=== PATIENT | female | born 1985 | race Caucasian/White ===

== ENCOUNTER 2017-08-28 03:51 | Emergency (ER) | payer OTHER ==
[~2017-08-28 03:51] MED LIST: KETO10 PO
[2017-08-28 03:54] VITALS: BP 128/76; PULSE 75; RESP 16; TEMP 97.7; O2SAT 100
[2017-08-28] MEDS ORDERED: ACETAMINOPHEN 325 MG TAB PO ONE (04:45)
[2017-08-28] MEDS ORDERED: SODIUM CHLOR 0.9% 1000 ML INJ 1,000 ML IV ONE (04:45)
[2017-08-28] MEDS ORDERED: FAMOTIDINE 20 MG TAB PO ONE (04:45)
[2017-08-28 04:56] LABS: AUTOMATED NEUTROPHIL # 4.4 TH/MM3 (1.8-7.7); BASOPHIL % 0.6 % (0.0-2.0); EOSINOPHIL # 0.2 TH/MM3 (0-0.4); EOSINOPHIL % 2.5 % (0.0-4.0); HEMATOCRIT 33.3 % (35.0-46.0); HEMOGLOBIN 11.4 GM/DL (11.6-15.3); LYMPH % 35.4 % (9.0-44.0); LYMPHOCYTE # 2.9 TH/MM3 (1.0-4.8); MEAN CELL VOLUME 87.3 FL (80.0-100.0); MEAN CORPUSCULAR HEMOGLOBIN 29.8 PG (27.0-34.0); MEAN CORPUSCULAR HGB CONC 34.1 % (32.0-36.0); MEAN PLATELET VOLUME 9.2 FL (7.0-11.0); MONOCYTE # 0.7 TH/MM3 (0-0.9); NEUT % 53.5 % (16.0-70.0); PLATELET COUNT 218 TH/MM3 (150-450); RED BLOOD COUNT 3.81 MIL/MM3 (4.00-5.30); RED CELL DISTRIBUTION WIDTH 14.8 % (11.6-17.2); WHITE BLOOD COUNT 8.3 TH/MM3 (4.0-11.0)
[2017-08-28 05:10] LABS: ALBUMIN 3.1 GM/DL (3.4-5.0); BICARBONATE 25.7 MEQ/L (21.0-32.0); CALCIUM 8.7 MG/DL (8.5-10.1); CREATININE 0.57 MG/DL (0.50-1.00); DIRECT BILIRUBIN ADULT 0.1 MG/DL (0.0-0.2)
[2017-08-28 05:27] LABS: INDIRECT BILIRUBIN 0.1 MG/DL (0.0-0.8); TOTAL BILIRUBIN ADULT 0.2 MG/DL (0.2-1.0); TOTAL PROTEIN 6.6 GM/DL (6.4-8.2)
[2017-08-28 05:48] LABS: AMORPHOUS SEDIMENT, URINE RARE; BILIRUBIN, URINE NEG (NEG); BLOOD, URINE NEG (NEG); GLUCOSE,URINE NEG (NEG); KETONE, URINE NEG (NEG); MUCUS URINE FEW /lpf (OCC); NITRITE,URINE NEG (NEG); SQUAMOUS EPITHELIAL CELL URINE 1 /hpf (0-5); URINE COLOR LIGHT-YELLOW (YELLW/STRAW); URINE LEUKOCYTE ESTERASE NEG (NEG)
[2017-08-28] MEDS ORDERED: ZANT150T2 PO (06:14)
--- NOTE | 2017-08-28 06:15 | PD ---
HPI Chief Complaint: Related Problem Time Seen by Provider: 04:19 Travel History International Travel<30 days: No Contact w/Intl Traveler<30days: No Traveled to known affect area: No History of Present Illness HPI Patient is a 32 year old female, 13 weeks , , who comes in complaining of abdominal pain with vaginal spotting that started this afternoon. She says it got so bad she felt like she was going to pass out. She denies fever or chills. She denies dysuria. She has seen an OB and everything has been developing normally. She denies nausea or vomiting. She denies any flank pain. Severity is mild to moderate. PFSH Past Medical History Diminished Hearing: No Reproductive: Yes (POLUCYSTIC OVARIAN SYNDROME ) ?: LMP: 05/26/17 : 0 Past Surgical History Surgical History: No Previous Surgery Social History Alcohol Use: No Tobacco Use: No Substance Use: No Allergies-Medications (Allergen,Severity, Reaction): Coded Allergies: No Known Allergies (Unverified , 08/01/15) Reported Meds & Prescriptions Reported Meds & Active Scripts Active Toradol (Ketorolac Tromethamine) 10 Mg Tab 10 Mg PO Q8 *DO NOT EXCEED 40 MG/DAY* *DURATION IS NOT TO EXCEED 5 DAYS* Review of Systems Except as stated in HPI: all other systems reviewed are Neg General / Constitutional: No: Fever, Chills HENT: No: Headaches, Lightheadedness Cardiovascular: No: Chest Pain or Discomfort Respiratory: No: Shortness of Breath Gastrointestinal: Positive: Abdominal Pain Genitourinary: Positive: Vaginal Bleeding, No: Dysuria Skin: No Rash, No Change in Pigmentation Neurologic: No: Weakness Physical Exam Narrative GENERAL: Awake and alert, in no acute distress. SKIN: Focused skin assessment warm/dry. HEAD: Atraumatic. Normocephalic. EYES: Pupils equal and round. No scleral icterus. ENT: Mucous membranes pink and moist. NECK: Trachea midline. No JVD. CARDIOVASCULAR: Regular rate and rhythm. No murmur appreciated. RESPIRATORY: No accessory muscle use. Clear to auscultation. Breath sounds equal bilaterally. GASTROINTESTINAL: Abdomen soft, nondistended. Tender to palpation of the epigastric area. No rebound or guarding. : Exam performed in the presence of a nurse. No vaginal bleeding, os is closed. MUSCULOSKELETAL: No obvious deformities. No clubbing. No cyanosis. No edema. NEUROLOGICAL: Awake and alert. No obvious cranial nerve deficits. Motor grossly within normal limits. Normal speech. PSYCHIATRIC: Appropriate mood and affect; insight and judgment normal. Data Data Last Documented VS Vital Signs Date Time Temp Pulse Resp B/P (MAP) Pulse Ox O2 Delivery O2 Flow Rate FiO2 08/28/17 03:54 97.7 75 16 128/76 (93) 100 Orders Orders Ed Poc Ultrasound (08/28/17 ) Iv Access Insert/Monitor (08/28/17 04:33) Complete Blood Count With Diff (08/28/17 04:33) Basic Metabolic Panel (Bmp) (08/28/17 04:33) Hepatic Functional Panel (08/28/17 04:33) Lipase (08/28/17 04:33) Type And Screen (08/28/17 04:33) Beta Hcg (Quant/Titer) (08/28/17 04:33) Urinalysis - C+S If Indicated (08/28/17 04:33) Sodium Chlor 0.9% 1000 Ml Inj (Ns 1000 M (08/28/17 04:45) Acetaminophen (Tylenol) (08/28/17 04:45) Famotidine (Pepcid) (08/28/17 04:45) Labs Laboratory Tests Test 08/28/17 04:40 08/28/17 05:20 White Blood Count 8.3 TH/MM3 Red Blood Count 3.81 MIL/MM3 Hemoglobin 11.4 GM/DL Hematocrit 33.3 % Mean Corpuscular Volume 87.3 FL Mean Corpuscular Hemoglobin 29.8 PG Mean Corpuscular Hemoglobin Concent 34.1 % Red Cell Distribution Width 14.8 % Platelet Count 218 TH/MM3 Mean Platelet Volume 9.2 FL Neutrophils (%) (Auto) 53.5 % Lymphocytes (%) (Auto) 35.4 % Monocytes (%) (Auto) 8.0 % Eosinophils (%) (Auto) 2.5 % Basophils (%) (Auto) 0.6 % Neutrophils # (Auto) 4.4 TH/MM3 Lymphocytes # (Auto) 2.9 TH/MM3 Monocytes # (Auto) 0.7 TH/MM3 Eosinophils # (Auto) 0.2 TH/MM3 Basophils # (Auto) 0.0 TH/MM3 CBC Comment DIFF FINAL Differential Comment Blood Urea Nitrogen 9 MG/DL Creatinine 0.57 MG/DL Random Glucose 79 MG/DL Total Protein 6.6 GM/DL Albumin 3.1 GM/DL Calcium Level 8.7 MG/DL Alkaline Phosphatase 33 U/L Aspartate Amino Transf (AST/SGOT) 12 U/L Alanine Aminotransferase (ALT/SGPT) 14 U/L Total Bilirubin 0.2 MG/DL Direct Bilirubin 0.1 MG/DL Sodium Level 137 MEQ/L Potassium Level 3.8 MEQ/L Chloride Level 104 MEQ/L Carbon Dioxide Level 25.7 MEQ/L Anion Gap 7 MEQ/L Estimat Glomerular Filtration Rate 125 ML/MIN Indirect Bilirubin 0.1 MG/DL Lipase 123 U/L Human Chorionic Gonadotropin, Quant 88885 MIU/ML Urine Color LIGHT-YELLOW Urine Turbidity CLEAR Urine pH 6.0 Urine Specific [place] 1.015 Urine Protein NEG mg/dL Urine Glucose (UA) NEG mg/dL Urine Ketones NEG mg/dL Urine Occult Blood NEG Urine Nitrite NEG Urine Bilirubin NEG Urine Urobilinogen LESS THAN 2.0 MG/DL Urine Leukocyte Esterase NEG Urine RBC LESS THAN 1 /hpf Urine WBC LESS THAN 1 /hpf Urine Squamous Epithelial Cells 1 /hpf Urine Amorphous Sediment RARE Urine Mucus FEW /lpf Microscopic Urinalysis Comment CULT NOT INDICATED MDM Medical Decision Making Medical Screen Exam Complete: Yes Emergency Medical Condition: Yes Medical Record Reviewed: Yes Differential Diagnosis threatened vs UTI vs dehydration vs GERD Narrative Course Patient is a 32 year old female who comes in complaining of abdominal pain with vaginal spotting in . Exam shows epigastric tenderness. IV established, labs sent. Bedside US performed shows IUP with appropriate heart rate. Given IVF, Famotidine, Tylenol. Labs show no acute abnormalities. She she Rh+. Advised to increase her fluid intake. Advised to take Zantac. Advised to follow up with her OB. Advised to return as needed for any worsening symptoms. Procedures Procedure Narrative Emergency Department Pelvic ultrasound was performed with patient consent. The curvilinear probe was used in the transverse and sagittal views within the suprapubic region revealing single intrauterine . heart rate was 150. Diagnosis Primary Impression: Abdominal pain affecting Additional Impression: Threatened Patient Instructions: Abdominal Pain (ED), General Instructions, Threatened Miscarriage (ED) Additional Instructions: Follow up with your OB. Increase your fluid intake. Take Tums or Zantac to help with abdominal pain. Return to the ED as needed for any worsening symptoms. Scripts Ranitidine (Zantac) 150 Mg Tab 150 MG PO BID for Reduce Stomach Acid, #60 TAB 0 Refills Prov: Elle Montez MD 08/28/17 Disposition: 01 DISCHARGE HOME Condition: Stable Elle Montez MD Aug 28, 2017 06:15
[2017-08-28 06:23] VITALS: BP 110/62
== END 2017-08-28 06:28 | disposition home or self-care (01) ==
LOC: NEPC 03:51
DX: O20.0 Threatened abortion (principal); Z3A.13 13 weeks gestation of pregnancy
CPT/HCPCS: 80048; 80076; 81001; 83690; 84702; 85025; 86850; 86900; 86901; 99284; J7030

== ENCOUNTER → 2017-10-06 | Outpatient (CLI) | DX: Z36.2 Encounter for other antenatal screening follow-up (principal) ==

== ENCOUNTER 2018-03-08 06:14 | Inpatient (IN) ==
[2018-03-08] MEDS ORDERED: Sod Chloride 0.9% Inj 1,000 ML IV.CONT PRN (06:39)
[2018-03-08] MEDS ORDERED: fentaNYL Citrate Inj 100 MCG/2 ML Ampul IV.PUSH PRN (06:39)
[2018-03-08] MEDS ORDERED: Oxytocin 30 Units/500ml Premix 30 UNITS/500 ML BAG IV.SIG ONE (06:39)
[2018-03-08] MEDS ORDERED: Sodium Chlor 0.9% Inj 500 ML IV.SIG PRN (06:39)
[2018-03-08] MEDS ORDERED: Naloxone Inj 0.4 MG/ML Vial IV.PUSH PRN (06:39)
[2018-03-08] MEDS ORDERED: Oxytocin 30 Units/500ml Premix 30 UNITS/500 ML BAG IV.SIG PRN (06:40)
[2018-03-08] MEDS ORDERED: Penicillin G Potassium Inj 5,000,000 UNIT in Sodium Chloride 0.9% Inj 100 ML IV.SIG ONE ×2 (06:41→13:00)
[2018-03-08] MEDS ORDERED: Citric Acid/Sodium Citrate Liq 30 ML UDC PO SCH ×2 (06:45)
--- NOTE | 2018-03-08 06:48 | P.HPOB ---
History of Present Illness Service: obstetrics Primary Care Physician: No Primary Care Physician Chief Complaint: labor induction 40 6/7 weeks Weeks Gestation:: 40 Para: 0 : 1 - Inpatient Certification I certify that the inpatient services were ordered in accordance with Medicare regulations governing the order. This includes certification that hospital inpatient services are reasonable and necessary and in the case of services not specified as inpatient-only under 42 CFR 419.22(n), that they are appropriately provided as inpatient services in accordance to with the 2-midnight benchmark under 43 CFR 412.3(e) Estimated Total Length of Stay (Days): 2 Plans for Post Hospital Care: Home Review of Systems All other systems reviewed negative except as stated in HPI [facility] - History History Provided By: Patient - Medical / Surgical Hx Neg / Unobtainable Surgical History: No Previous Surgery - Social History I have reviewed the patient's Social History: Yes - Tobacco History Second Hand Smoke Exposure: No Tobacco Use In Past 30 Days: No Smoking Status: Never smoker Medications and Allergies Active Medications: Active Medications Citric Acid/Sodium Citrate (Sodium Citrate/Citric Acid Liq) 30 ml PO [employer] FRANCHESCA Stop: 03/12/18 06:44 Citric Acid/Sodium Citrate (Sodium Citrate/Citric Acid Liq) 30 ml PO [employer]ER FRACNHESCA Stop: 03/12/18 06:44 Fentanyl Citrate (Fentanyl Inj) 50 mcg IV.PUSH Q1H PRN PRN Reason: Pain Scale 3 - 5 Fentanyl Citrate (Fentanyl Inj) 100 mcg IV.PUSH Q1H PRN PRN Reason: PAIN SCALE 6 TO 10 Lactated Ringer's (Lr 1000 Ml Inj) 1,000 mls @ 125 mls/hr IV.CONT .Q8H FRANCHESCA Sodium Chloride (Ns Inj) 500 mls @ 1,000 mls/hr IV.SIG UNSCH PRN PRN Reason: SEE LABEL COMMENTS Oxytocin (Pitocin 30 Units/Ns 500 Ml Premix) 30 units in 500 mls @ 999 mls/hr IV.SIG BOLUS ONE Stop: 03/08/18 07:09 Lactated Ringer's (Lr 1000 Ml Inj) 1,000 mls @ 3,000 mls/hr IV.SIG UNSCH PRN PRN Reason: compromise or epidural Sodium Chloride (Ns Inj) 1,000 mls @ 100 mls/hr IV.CONT .Q10H PRN PRN Reason: SEE LABEL COMMENTS Oxytocin (Pitocin 30 Units/Ns 500 Ml Premix) 30 units in 500 mls @ 2 mls/hr IV.SIG TITRATE PRN; Protocol PRN Reason: For induction of labor Penicillin G Potassium 5,000, (000 unit/ Sodium Chloride) 100 mls @ 200 mls/hr IV.SIG ONCE ONE Stop: 03/08/18 07:10 Penicillin G Potassium 2,500, (000 unit/ Sodium Chloride) 100 mls @ 200 mls/hr IV.SIG Q4H FRANCHESCA Lidocaine HCl (Xylocaine 1% Inj) 0.1 ml I-DERMAL PRN PRN PRN Reason: For IV start Stop: 03/11/18 06:38 Lidocaine HCl (Xylocaine 1% Inj) 10 ml INFILTRATN PRN PRN PRN Reason: For episiotomy repair Stop: 03/10/18 06:38 Mineral Oil (Muri-Lube Oil) 10 ml TOPICAL PRN PRN PRN Reason: PRN perineal massage Naloxone HCl (Narcan Inj) 0.1 mg IV.PUSH Q2M PRN PRN Reason: for opiate reversal Allergies Allergy/AdvReac Type Severity Reaction Status Date / Time No Known Allergies Allergy Verified 02/07/18 14:36 Home Medications Medication Instructions Recorded Confirmed Type [id number] [id number] 1 tab PO DAILY 02/07/18 03/08/18 History Exam Vital signs: Intake & Output 03/07/18 03/07/18 03/08/18 06:59 18:59 06:59 Weight 68.039 kg - Constitutional no acute distress - Routine HEENT Exam Head: Present: normocephalic - Routine Neck Exam Present: supple - Routine Respiratory Exam Present: CTA bilaterally - Routine Cardiovascular Exam Present: RRR - Routine Abdominal Exam Present: soft, normoactive bowel sounds - Routine Extremities Exam Present: full ROM - Routine Neurological Exam Present: alert, oriented X3 - Additional findings Additional findings: cervix 1 cm Results - Labs Group B Strep: Positive Caprini VTE Risk Assessment Caprini VTE Risk Assessment: No/Low Risk (score <= 1) Caprini Risk Assessment Model: Point Value = 1 Point Value = 2 Point Value = 3 Point Value = 5 Age 41-60 Minor surgery BMI > 25 kg/m2 Swollen legs Varicose veins or History of unexplained or recurrent spontaneous Oral contraceptives or hormone replacement Sepsis (< 1 month) Serious lung disease, including pneumonia (< 1 month) Abnormal pulmonary function Acute myocardial infarction Congestive heart failure (< 1 month) History of inflammatory bowel disease Medical patient at bed rest Age 61-74 Arthroscopic surgery Major open surgery (> 45 min) Laparoscopic surgery (> 45 min) Malignancy Confined to bed (> 72 hours) Immobilizing plaster cast Central venous access Age >= 75 History of VTE Family history of VTE Factor V Leiden Prothrombin [id number] Lupus anticoagulant Anticardiolipin antibodies Elevated serum homocysteine Heparin-induced thrombocytopenia Other congenital or acquired thrombophilia Stroke (< 1 month) Elective arthroplasty Hip, pelvis, or leg fracture Acute spinal cord injury (< 1 month) Prophylaxis Regimen: Total Risk Factor Score Risk Level Prophylaxis Regimen 0-1 Low Early ambulation 2 Moderate Order ONE of the following: *Sequential Compression Device (SCD) *Heparin 5000 units SQ BID 3-4 Higher Order ONE of the following medications: *Heparin 5000 units SQ TID *Enoxaparin/Lovenox 40 mg SQ daily (WT < 150 kg, CrCl > 30 mL/min) *Enoxaparin/Lovenox 30 mg SQ daily (WT < 150 kg, CrCl > 10-29 mL/min) *Enoxaparin/Lovenox 30 mg SQ BID (WT < 150 kg, CrCl > 30 mL/min) AND/OR *Sequential Compression Device (SCD) 5 or more Highest Order ONE of the following medications: *Heparin 5000 units SQ TID (Preferred with Epidurals) *Enoxaparin/Lovenox 40 mg SQ daily (WT < 150 kg, CrCl > 30 mL/min) *Enoxaparin/Lovenox 30 mg SQ daily (WT < 150 kg, CrCl > 10-29 mL/min) *Enoxaparin/Lovenox 30 mg SQ BID (WT < 150 kg, CrCl > 30 mL/min) AND *Sequential Compression Device (SCD) Assessment and Plan - Diagnosis (1) Postmaturity , 40-42 weeks gestation Code(s): O48.0 - Post-term Status: Acute - Plan GBS treatment and induction with pitocin
[2018-03-08 07:44] LABS: Baso # (Auto) 0.1 th/mm3 (0.0-0.2); Baso % (Auto) 0.6 % (0.0-2.0); Eos # (Auto) 0.4 th/mm3 (0.0-0.4); Eos % (Auto) 5.1 % (0.0-4.0); Hematocrit 31.2 % (35.0-46.0); Hemoglobin 10.1 gm/dL (11.6-15.3); Lymph % (Auto) 23.4 % (9.0-44.0); Mean Corpuscular HGB Conc 32.3 % (32.0-36.0); Mean Corpuscular Hemoglobin 25.6 pg (27.0-34.0); Mean Corpuscular Volume 79.3 fL (80.0-100.0); Mono # (Auto) 0.5 th/mm3 (0.0-0.9); Mono % (Auto) 6.2 % (0.0-8.0); Neut # (Auto) 5.6 th/mm3 (1.8-7.7); Neut % (Auto) 64.7 % (16.0-70.0); Platelet Count 214 th/mm3 (150-450); Red Blood Count 3.93 mil/mm3 (4.00-5.30); Red Cell Distribution Width 15.4 % (11.6-17.2); White Blood Count 8.7 th/mm3 (4.0-11.0)
[2018-03-08 07:54] LABS: Bacteria,Urine Rare /hpf; Bilirubin,Urine Negative (Negative); Clarity,Urine Hazy (Clear); Color,Urine Yellow (Yellw/Straw); Glucose,Urine (UA) Negative (Negative); Leukocyte Esterase,Urine Small (Negative); Mucus,Urine Few /lpf (Occasional); Nitrite,Urine Negative (Negative); Specific Gravity,Urine 1.012 (1.002-1.035); Squamous Epithelial Cell,Urine 7 /hpf (0-5)
[2018-03-08 08:20] LABS: Amphetamine Urine With Conf Neg (Neg); Benzodiazepine Urine With Conf Neg (Neg)
[2018-03-08] MEDS ORDERED: Penicillin G Potassium Inj 2,500,000 UNIT in Sodium Chlor 0.9% Inj 100 ML IV.SIG SCH (10:42)
--- NOTE | 2018-03-08 13:01 | P.OBLABOR ---
Subjective Interval history: 40 weeks and doing well. she has good cervical change, Objective Vital Signs: Vital Signs - 8 hr 03/08/18 06:45 03/08/18 07:15 03/08/18 07:30 Temperature 97.6 F Pulse Rate 76 Respiratory Rate 16 17 Blood Pressure 128/86 03/08/18 08:00 03/08/18 09:00 03/08/18 10:00 Temperature Pulse Rate Respiratory Rate 17 18 17 Blood Pressure 03/08/18 10:45 03/08/18 11:30 03/08/18 12:00 Temperature 98.2 F Pulse Rate 101 H Respiratory Rate 18 17 18 Blood Pressure 103/65 03/08/18 12:30 03/08/18 12:56 Temperature Pulse Rate 85 Respiratory Rate 17 Blood Pressure 133/83 Objective: Pelvic Exam: Cervix: [-] Dilatation: [-] Effacement: [-] Station: [-] Presentation: [-] Membranes: [intact or ruptured] Uterine Contractions: [-] FHT's: Category: [-] Baseline: [-] Reactive: [-] Variability: [-] Decels: [-] Patient Started Active Labor: Yes Active Labor Start Date: 03/08/18 Active Labor Start Time: 08:00 Medical Induction of Labor: No Artificial Rupture of Membrane: Yes Artificial ROM Date: 03/08/18 Artificial ROM Time: 13:01 Assessment and Plan - Diagnosis (1) Postmaturity , 40-42 weeks gestation Code(s): O48.0 - Post-term Status: Acute - Plan GBS treatment and induction with pitocin, IUPC placed
[2018-03-08] MEDS: fentaNYL Citrate Inj 100 MCG/2 ML Ampul IV.PUSH PRN ×2 (13:55→15:08)
[2018-03-08] MEDS ORDERED: fentaNYL 2MCG-Bupiv 0.125% Epi 150 ML EPIDURAL ONE (16:33)
[2018-03-08] MEDS ORDERED: Lidocaine PF 1% Inj 5 ML Vial ONE (16:45)
[2018-03-08] MEDS ORDERED: Lidocaaine 1.5%/Epinephrine 1:200,000 PF Inj 5 ML Amp ONE (16:45)
[2018-03-08] MEDS: Penicillin G Potassium Inj 2,500,000 UNIT in Sodium Chlor 0.9% Inj 100 ML IV.SIG SCH ×2 (17:20→21:21)
[2018-03-08] MEDS ORDERED: fentaNYL 2MCG-Bupiv 0.125% Epi 150 ML EPIDURAL PRN (18:16)
[2018-03-08] MEDS ORDERED: fentaNYL Citrate Inj 100 MCG/2 ML Ampul EPIDURAL ONE (18:16)
--- NOTE | 2018-03-08 21:05 | P.OBLABOR ---
Subjective Interval history: doing well with contractions. Off pitocin now and carmen 3-5 min. She comfortable Objective Vital Signs: Vital Signs - 8 hr 03/08/18 13:27 03/08/18 14:30 03/08/18 14:44 Temperature 97.8 F Pulse Rate 79 Respiratory Rate 17 18 Blood Pressure 119/62 03/08/18 14:46 03/08/18 15:00 03/08/18 15:15 Temperature Pulse Rate 72 82 81 Respiratory Rate Blood Pressure 122/75 129/82 132/85 03/08/18 15:30 03/08/18 16:00 03/08/18 16:40 Temperature Pulse Rate 84 Respiratory Rate 17 18 Blood Pressure 123/88 03/08/18 16:58 03/08/18 17:00 03/08/18 17:10 Temperature 97.6 F Pulse Rate 88 87 Respiratory Rate 17 Blood Pressure 128/74 115/86 03/08/18 17:15 03/08/18 17:20 03/08/18 17:26 Temperature Pulse Rate 85 71 110 H Respiratory Rate Blood Pressure 126/72 125/67 106/73 03/08/18 17:35 03/08/18 17:45 03/08/18 17:50 Temperature Pulse Rate 90 115 H 83 Respiratory Rate 18 Blood Pressure 130/79 127/69 119/77 03/08/18 17:56 03/08/18 18:00 03/08/18 18:10 Temperature Pulse Rate 106 H 89 104 H Respiratory Rate 17 Blood Pressure 94/60 L 132/74 03/08/18 18:15 03/08/18 18:20 03/08/18 18:25 Temperature Pulse Rate 90 126 H 86 Respiratory Rate 18 Blood Pressure 105/73 03/08/18 18:30 03/08/18 18:42 03/08/18 18:45 Temperature Pulse Rate 87 18 L 85 Respiratory Rate 16 Blood Pressure 119/68 115/68 03/08/18 19:05 03/08/18 19:21 03/08/18 19:25 Temperature Pulse Rate 97 H 95 H 98 H Respiratory Rate 18 Blood Pressure 105/64 106/80 03/08/18 19:30 18 19:46 03/08/18 19:50 Temperature Pulse Rate 90 95 H 82 Respiratory Rate 18 Blood Pressure 105/61 102/80 03/08/18 19:53 03/08/18 19:55 03/08/18 20:00 Temperature 97.8 F Pulse Rate 87 102 H Respiratory Rate Blood Pressure 123/74 03/08/18 20:15 03/08/18 20:20 03/08/18 20:33 Temperature Pulse Rate 94 H 109 H 108 H Respiratory Rate 18 Blood Pressure 120/66 115/85 03/08/18 20:35 03/08/18 20:40 03/08/18 20:54 Temperature Pulse Rate 110 H 124 H 116 H Respiratory Rate 18 Blood Pressure 102/64 03/08/18 20:55 Temperature Pulse Rate 105 H Respiratory Rate Blood Pressure Objective: Pelvic Exam: Cervix: [-] Dilatation: 6 Effacement: [-] Station: -2 Presentation: [-] Membranes: AROM Uterine Contractions: [-] FHT's: Category: 1 had category 2 but pit held and position changed improved. If cervix does not change she will need pitocin again Baseline: [-] Reactive: [-] Variability: [-] Decels: [-] Assessment and Plan - Diagnosis (1) Postmaturity , 40-42 weeks gestation Code(s): O48.0 - Post-term Status: Acute - Plan GBS treatment and induction with pitocin, IUPC placed, continue current care will need pitocin. There have been moments of intolerance of contractions
[2018-03-09] MEDS: Penicillin G Potassium Inj 2,500,000 UNIT in Sodium Chlor 0.9% Inj 100 ML IV.SIG SCH ×2 (01:36→07:01)
[2018-03-09] MEDS ORDERED: ceFAZolin 2 GM Premix Inj 2 GM/50 ML PIGGYBACK IV.SIG ONE (01:57)
--- NOTE | 2018-03-09 02:00 | P.OBLABOR ---
Subjective Interval history: patient counselled for CS she is doing well but she has been 6 cm for 6 hours with no descent. She is ok with CS and questions answered Objective Vital Signs: Vital Signs - 8 hr 03/08/18 18:00 03/08/18 18:10 03/08/18 18:15 Temperature Pulse Rate 89 104 H 90 Respiratory Rate 17 18 Blood Pressure 132/74 105/73 03/08/18 18:20 03/08/18 18:25 03/08/18 18:30 Temperature Pulse Rate 126 H 86 87 Respiratory Rate Blood Pressure 119/68 03/08/18 18:42 03/08/18 18:45 03/08/18 19:05 Temperature Pulse Rate 18 L 85 97 H Respiratory Rate 16 Blood Pressure 115/68 105/64 03/08/18 19:21 03/08/18 19:25 03/08/18 19:30 Temperature Pulse Rate 95 H 98 H 90 Respiratory Rate 18 Blood Pressure 106/80 105/61 03/08/18 19:46 03/08/18 19:50 03/08/18 19:53 Temperature 97.8 F Pulse Rate 95 H 82 Respiratory Rate 18 Blood Pressure 102/80 03/08/18 19:55 03/08/18 20:00 03/08/18 20:15 Temperature Pulse Rate 87 102 H 94 H Respiratory Rate Blood Pressure 123/74 120/66 03/08/18 20:20 03/08/18 20:33 03/08/18 20:35 Temperature Pulse Rate 109 H 108 H 110 H Respiratory Rate 18 Blood Pressure 115/85 03/08/18 20:40 03/08/18 20:54 03/08/18 20:55 Temperature Pulse Rate 124 H 116 H 105 H Respiratory Rate 18 Blood Pressure 102/64 03/08/18 21:00 03/08/18 21:05 03/08/18 21:10 Temperature Pulse Rate 105 H 103 H 107 H Respiratory Rate Blood Pressure 113/70 03/08/18 21:15 03/08/18 21:24 03/08/18 21:25 Temperature Pulse Rate 105 H 112 H 106 H Respiratory Rate 18 Blood Pressure 111/71 03/08/18 21:35 03/08/18 21:40 03/08/18 21:45 Temperature Pulse Rate 109 H 114 H 109 H Respiratory Rate Blood Pressure 111/79 120/84 03/08/18 21:50 03/08/18 21:55 03/08/18 22:00 Temperature 97.7 F Pulse Rate 108 H 108 H Respiratory Rate 20 Blood Pressure 03/08/18 22:05 03/08/18 22:10 03/08/18 22:15 Temperature Pulse Rate 114 H 124 H 111 H Respiratory Rate Blood Pressure 118/82 111/63 03/08/18 22:20 03/08/18 22:21 03/08/18 22:30 Temperature Pulse Rate 101 H 103 H Respiratory Rate 18 Blood Pressure 117/78 03/08/18 22:50 03/08/18 23:05 03/08/18 23:10 Temperature Pulse Rate 126 H 124 H 104 H Respiratory Rate 18 Blood Pressure 123/77 104/63 03/08/18 23:25 03/08/18 23:45 03/08/18 23:49 Temperature 98.3 F Pulse Rate 113 H 110 H Respiratory Rate 18 Blood Pressure 95/56 L 114/72 03/08/18 23:50 03/08/18 23:55 03/09/18 00:00 Temperature Pulse Rate 114 H 114 H 101 H Respiratory Rate Blood Pressure 103/63 03/09/18 00:05 03/09/18 00:25 03/09/18 00:30 Temperature Pulse Rate 110 H 120 H 96 H Respiratory Rate 18 Blood Pressure 105/63 114/75 03/09/18 00:50 03/09/18 00:55 03/09/18 01:00 Temperature Pulse Rate 88 92 H 87 Respiratory Rate Blood Pressure 120/80 116/71 03/09/18 01:05 03/09/18 01:10 03/09/18 01:15 Temperature Pulse Rate 96 H 104 H 99 H Respiratory Rate Blood Pressure 116/70 03/09/18 01:20 03/09/18 01:23 03/09/18 01:25 Temperature Pulse Rate 87 99 H Respiratory Rate 18 Blood Pressure 03/09/18 01:30 03/09/18 01:35 03/09/18 01:40 Temperature Pulse Rate 93 H 98 H 99 H Respiratory Rate Blood Pressure 125/77 03/09/18 01:45 Temperature Pulse Rate 93 H Respiratory Rate Blood Pressure Objective: Pelvic Exam: Cervix: [-] Dilatation: 6 cm Effacement: [-] Station: [-] Presentation: [-] Membranes: AROM Uterine Contractions: [-] FHT's: Category: 1 now but has had variables with slight late component at times Baseline: Reactive: [-] Variability: [-] Decels: [-] Assessment and Plan - Diagnosis (1) Postmaturity , 40-42 weeks gestation Code(s): O48.0 - Post-term Status: Acute - Plan For section for arrest of dilation.at 6 cm
[2018-03-09] MEDS ORDERED: Morphine Sulfate PF Inj 5 MG/10 ML Ampul ONE ×2 (02:07→02:19)
[2018-03-09] MEDS ORDERED: Succinylcholine Inj 200 MG/10 ML Vial IV.PUSH ONE (02:11)
[2018-03-09] MEDS ORDERED: Lidocaine 2%/Epinephrine 1:200,000 PF Inj 20 ML Vial INFILTRATN ONE (02:11)
[2018-03-09] MEDS ORDERED: Phenylephrine/NS 1000 MCG/10ML Syringe IV.PUSH ONE (02:11)
[2018-03-09] MEDS ORDERED: Lidocaine PF 1% Inj 5 ML Syringe OTHER ONE (02:11)
[2018-03-09] MEDS ORDERED: Naloxone Inj 0.4 MG/ML Vial IV.PUSH PRN (03:00)
[2018-03-09] MEDS ORDERED: Simethicone 80 MG Chew Tablet PO PRN (03:11)
[2018-03-09] MEDS ORDERED: Oxytocin 30 Units/500ml Premix 30 UNITS/500 ML BAG IV.SIG ONE (03:11)
--- NOTE | 2018-03-09 03:17 | P.OBDELI ---
Procedure Note - Pre Op Diagnosis (1) Arrest of dilation, delivered, current hospitalization - Post Op Diagnosis (1) Arrest of dilation, delivered, current hospitalization Performed by: Moshe Chavis MD Procedure: Primary Low Transverse Section Indication for Delivery: malposition (OP) Informed Consent Obtained: For anesthesia, For procedure Confirmed Correct: Patient, Procedure, Time-out taken Anesthesia: Epidural, Other (general) Monitoring During Procedure: Blood pressure monitoring Urinary Catheter: Inserted using sterile technique, To dependent drainage Sterile Preparation: Duraprep Position: Supine with wedge to left side - Operative Features Skin Incision: Pfannenstiel Uterine Incision: Low transverse w/knife / blunt ext Membranes Ruptured: Previously Presentation: Occiput posterior Status of : Viable, Cord blood Placenta Delivered: Intact Medications: Antibiotics, Oxytocin Procedure Tolerated: Well Baby Condition: Stable Procedure in Detail: Taken to the operating room identified by name band and verbally and given a regional anesthetic. She was prepped and draped in the usual sterile manner for a section. A time out was taken. A Pfannenstiel incision was made and carried down to the fascia the fascia was nicked bilaterally and the fascia was taken off the rectus muscle by blunt and sharp dissection. The rectus muscles were spread bluntly and the peritoneum was entered under direct vision. The incision was extended with care to avoid the urinary bladder. A bladder blade was placed and a bladder flap was created in the usual fashion. The lower uterine segment was then incised sharply in a transverse manner and taken down in the midline until the uterine cavity was entered. The incision was extended with the surgeon's fingers. The vertex was grasped and with fundal pressure the vertex was delivered without difficulty and the remainder of the delivered without difficulty. The cord clamping was delayed 45 seconds and then the cord was clamped cut and the was handed over to the resuscitation team cord blood was obtained the placenta was removed manually and the uterus was curettaged twice with a wet lap. The uterus was delivered from the abdomen. The uterine incision was repaired with 0 chromic in a running fashion in 2 layers the second layer imbricating the first. The cul-de-sac and gutters were cleaned of blood and debris the uterus was delivered back into the abdomen. The rectus muscles were reapproximated with 0 Vicryl in a running the fascia was repaired with 0 Vicryl from lateral to midline bilaterally. The subcutaneous layer was repaired with a 3-0 Vicryl. The skin was repaired with a 4-0 Monocryl in a subcuticular manner. Patient tolerated the procedure well and went to recovery room in good condition. - Infant: Female, Single
[2018-03-09] MEDS ORDERED: Ketorolac Inj 30 MG/ML (IVP) Vial ONE (04:16)
[2018-03-09] MEDS ORDERED: Oxytocin 30 Units/500ml Premix 30 UNITS/500 ML BAG IV.SIG PRN (08:11)
[2018-03-09] MEDS: Ibuprofen 600 MG Tablet PO PRN ×2 (10:50→18:31)
[2018-03-10] MEDS: Penicillin G Potassium Inj 2,500,000 UNIT in Sodium Chlor 0.9% Inj 100 ML IV.SIG SCH ×5 (00:32→17:24)
[2018-03-10] MEDS: Ibuprofen 600 MG Tablet PO PRN ×4 (00:56→22:10)
[2018-03-10 06:21] LABS: Baso % (Auto) 0.1 % (0.0-2.0); Eos # (Auto) 0.2 th/mm3 (0.0-0.4); Eos % (Auto) 1.5 % (0.0-4.0); Hematocrit 28.3 % (35.0-46.0); Hemoglobin 8.9 gm/dL (11.6-15.3); Lymph # (Auto) 2.1 th/mm3 (1.0-4.8); Lymph % (Auto) 13.6 % (9.0-44.0); Mean Corpuscular HGB Conc 31.4 % (32.0-36.0); Mean Corpuscular Hemoglobin 25.4 pg (27.0-34.0); Mean Corpuscular Volume 80.9 fL (80.0-100.0); Mean Platelet Volume 8.9 fL (7.0-11.0); Mono # (Auto) 0.8 th/mm3 (0.0-0.9); Neut # (Auto) 12.1 th/mm3 (1.8-7.7); Neut % (Auto) 79.8 % (16.0-70.0); Platelet Count 211 th/mm3 (150-450); Red Blood Count 3.49 mil/mm3 (4.00-5.30); Red Cell Distribution Width 15.4 % (11.6-17.2); White Blood Count 15.2 th/mm3 (4.0-11.0)
--- NOTE | 2018-03-10 08:45 | P.PNOB ---
Subjective Post day: 1 Interval history: doing well pod #1 Objective Vital Signs/I&O: Vital Signs 03/09/18 12:00 03/09/18 17:00 03/09/18 20:00 Temperature 98.3 F 98.2 F 98.0 F Pulse Rate 87 83 90 Respiratory Rate 20 18 18 Blood Pressure 108/68 100/58 L 104/59 L 03/10/18 00:00 03/10/18 01:45 03/10/18 07:00 Temperature 98.0 F 98.0 F Pulse Rate 88 84 Respiratory Rate 18 18 18 Blood Pressure 94/55 L 94/65 L 03/10/18 07:10 Temperature 98.4 F Pulse Rate 74 Respiratory Rate 20 Blood Pressure 119/75 Result Diagrams: 03/10/18 05:46 Objective Remarks: GENERAL: Well-nourished, well-developed patient. ABDOMEN/GI: Abdomen soft, non-tender. incision clean and dry Fundus: Firm, non-tender at umbilicus. GENITOURINARY: Light to moderate bleeding. EXTREMITIES: No cyanosis or edema, non-tender, without signs of DVT. Medications and IVs: Active Medications Citric Acid/Sodium Citrate (Sodium Citrate/Citric Acid Liq) 30 ml PO [facility] Stop: 03/12/18 06:44 Diphtheria/Pertussis/Tetanus Vacc (Boostrix Vaccine Inj) 0.5 ml IM .ONCE ONE Stop: 03/10/18 16:01 Oxytocin (Pitocin 30 Units/Ns 500 Ml Premix) 30 units in 500 mls @ 2 mls/hr IV.SIG TITRATE PRN; Protocol PRN Reason: For induction of labor Last Admin: 03/08/18 13:21 Dose: 2 milliunit/min, 2 mls/hr Penicillin G Potassium 2,500, (000 unit/ Sodium Chloride) 100 mls @ 200 mls/hr IV.SIG Q4H [facility] Last Admin: 03/10/18 07:36 Dose: Not Given Fentanyl/Bupivacaine/Sodium Chlor (Fentanyl 2 Mcg-Bupiv 0.125% Epi) 150 mls @ 8 mls/hr EPIDURAL PRN PRN PRN Reason: for Labor Pain Last Admin: 03/08/18 18:45 Dose: 8 mls/hr Ibuprofen (Motrin) 600 mg PO Q6HR PRN PRN Reason: cramping Last Admin: 03/10/18 00:56 Dose: 600 mg Ketorolac Tromethamine (Toradol Inj) 30 mg IM Q6H PRN PRN Reason: SEE LABEL COMMENTS Last Admin: 03/09/18 04:18 Dose: 30 mg Measles/Mumps/Rubella Vaccine Live (M-M-R Ii Vaccine Inj) 0.5 ml SQ .ONCE ONE Stop: 03/10/18 16:01 Ondansetron HCl (Zofran Inj) 4 mg IV.PUSH Q6H PRN PRN Reason: NAUSEA OR VOMITING Oxycodone/Acetaminophen (Percocet 5/325 Mg) 1 tab PO Q4H PRN PRN Reason: PAIN SCALE 3 TO 5 Last Admin: 03/09/18 19:59 Dose: 1 tab Oxycodone/Acetaminophen (Percocet 5/325 Mg) 2 tab PO Q4H PRN PRN Reason: PAIN SCALE 6 TO 10 Last Admin: 03/10/18 00:57 Dose: 2 tab Simethicone (Mylicon Chew) 80 mg PO QID PRN PRN Reason: FLATULENCE Sodium Chloride (Ns Flush) 2 ml IV.FLUSH BID [facility] Last Admin: 03/10/18 00:30 Dose: Not Given Sodium Chloride (Ns Flush) 2 ml IV.FLUSH PRN PRN PRN Reason: FLUSH AFTER USING IV ACCESS Sodium Chloride (Ns Flush) 2 ml IV.FLUSH BID [facility] Last Admin: 03/10/18 00:32 Dose: Not Given Sodium Chloride (Ns Flush) 2 ml IV.FLUSH PRN PRN PRN Reason: FLUSH AFTER USING IV ACCESS Assessment and Plan - Diagnosis (1) Postmaturity , 40-42 weeks gestation Code(s): O48.0 - Post-term Status: Acute - Plan section Pod #1 doing well sd home 03/11-03/12
[2018-03-10] MEDS: Docusate Sodium 100 MG Capsule PO SCH ×2 (15:55→22:09)
[2018-03-10] MEDS ORDERED: Measles/Mumps/Rubella Vaccine Inj 0.5 ML Vial SQ ONE (16:00)
[2018-03-10] MEDS ORDERED: Diphtheria/Tetanus/Pertussis Vaccine Inj 0.5 ML Syringe IM ONE (16:00)
[2018-03-10 20:16] VITALS: RESP 18
[2018-03-11] MEDS: Ibuprofen 600 MG Tablet PO PRN (05:38)
[2018-03-11] MEDS: Penicillin G Potassium Inj 2,500,000 UNIT in Sodium Chlor 0.9% Inj 100 ML IV.SIG SCH (05:45)
[2018-03-11 08:53] VITALS: BP 110/69; PULSE 78; TEMP 98
[2018-03-11] MEDS: Docusate Sodium 100 MG Capsule PO SCH (10:09)
== END 2018-03-11 14:12 | disposition home or self-care (01) ==
LOC: H2E 06:14 → H1EA 03-09 04:52
PROVIDERS: ADMIT Obstetrics & Gynecology; ATTEND Obstetrics & Gynecology